=== PATIENT | male | born 1945 | race Caucasian/White ===

== ENCOUNTER 2016-10-26 10:07 | Day surgery (SDC) | payer MEDICARE, MEDICAID ==
[2016-10-26] VITALS (9 sets, daily range): BP systolic 113–167; BP diastolic 53–93; PULSE 59–73; RESP 14–19; O2SAT 95–100
[~2016-10-26] VITALS: Ht 160 cm; Wt 59.2 kg
[~2016-10-26 10:07] MED LIST: ACET325C PO; AMLO10TA3 PO; ASPI-973 PO; ATOR20TA PO; CARV25TA2 PO; CeFAZolin 2 Gm/50 mL D5W IV Premix IV ONE; FOLI0.8C PO; FUR20 PO; GABA-502 PO; LISI40TA PO; Lactated Ringer's 1,000 ML IV ONE; NITR0.4T6 SL; OMEP20CA11 PO; [UNRECOGNIZED DRUG - OTHER]; stool softener
[2016-10-26] MEDS ORDERED: Ondansetron 2 mg/mL 2 mL Inj ONE (10:08)
[2016-10-26] MEDS ORDERED: EPHEDrine/NS 5 mg/mL 5 mL Syringe ONE (10:08)
[2016-10-26] MEDS ORDERED: Propofol 10,000 mCg/mL 20 mL Inj ONE (10:08)
[2016-10-26] MEDS ORDERED: CeFAZolin 2 Gm/50 mL D5W Duplex Bag IV ONE (11:31)
[2016-10-26] MEDS ORDERED: Phenylephrine 10,000 mCg/mL Inj IVPUSH PRN (12:35)
[2016-10-26] MEDS ORDERED: EPHEDrine Sulfate 50 mg/mL Inj IVPUSH PRN (12:35)
[2016-10-26] MEDS ORDERED: Ondansetron 2 mg/mL 2 mL Inj IVPUSH PRN (12:35)
[2016-10-26] MEDS ORDERED: Albuterol-Ipratropium 3 mL Inhalation Solution NEB PRN (12:35)
[2016-10-26] MEDS ORDERED: Lactated Ringer's 500 ML IV PRN (12:35)
[2016-10-26] MEDS ORDERED: MetoCLOpramide 5 mg/mL 2 mL Inj IVPUSH PRN (12:35)
[2016-10-26] MEDS ORDERED: Dexamethasone 4 mg/mL Inj IVPUSH PRN (12:35)
[2016-10-26] MEDS ORDERED: HYDROmorphone 1 mg/mL Inj IVPUSH PRN (12:35)
[2016-10-26] MEDS ORDERED: Lactated Ringer's 1,000 ML IV SCH (12:35)
[2016-10-26] MEDS ORDERED: fentaNYL-PF 50 mCg/mL 2 mL Inj IVPUSH PRN (12:35)
--- NOTE | 2016-10-26 12:35 | PCM.HPANE ---
Patient Data Surgeon Admitting Provider: Attending Provider:Edith Mills MD Primary Care Physician:Carlene Other Provider:Shawn Watts Anesthesia Reason for Visit Bladder Tumor Ht/WT & BMI Height (Feet): 5 Height (Inches): 5.5 Weight (Kilograms): 61.68 Body Mass Index 22.00, 22.00 Allergies Coded Allergies: ether (Verified Allergy, Unknown, 07/30/09) Past Anesthesia History Anesthesia History: Positive for:: Anesthesia Reactions Diabetes History Hx Diabetes?: No MRSA MRSA: No Medications Blood Thinner: Aspirin Hypertension Medication: Yes Home Meds Incl Beta John: Yes Reported Medications [tabavite ] No Conflict Check1 Tab DAILY 10/23/16 [stool softener] No Conflict Lctwv684 Mg PRN For Constipation 10/23/16 Omeprazole 20 Mg Capsule.dr20 Mg PO DAILY Ref 0 10/23/16 Nitroglycerin SL 0.4 Mg Tab.subl0.4 Mg SL PRN For Chest Pain 10/23/16 Lisinopril 40 Mg Ddrpgy34 Mg PO DAILY 30 Days Ref 0 10/23/16 Gabapentin 300 Mg Jitzswk615 Mg PO DAILY Ref 0 10/23/16 Furosemide 20 Mg Tab20 Mg PO DAILY 30 Days Ref 0 10/23/16 Folic Acid 0.8 Mg Capsule0.8 Mg PO DAILY 10/23/16 Carvedilol 25 Mg Sihciv73 Mg PO BID Ref 0 10/23/16 Atorvastatin (Lipitor)20 Mg Weerfr37 Mg PO DAILY Ref 0 10/23/16 Aspirin 81 Mg Vdrhng95 Mg PO DAILY Ref 0 10/23/16 Amlodipine 10 Mg Idnrmh37 Mg PO DAILY Ref 0 10/23/16 Acetaminophen 325 Mg Gvsjufl274 Mg PO PRN For Pain 10/23/16 History History of ENT Problems?: No Hx of Heart Problems?: Yes Cardiovascular History: Positive for:: Cardiac Surgery (4 vessel CABG) Chest Pain Congestive Heart Failure (cardiomyopathy) Hypertension Irregular Heartbeat (left bundle branch block) Denies:: Edema Heart Murmur Pacemaker Thrombophlebitis Hx of Respiratory Problem?: Yes Respiratory History: Positive for:: COPD Chest Surgery (CABG) Dyspnea (chronic) Denies:: Asthma Emphysema Hemoptysis Oxygen Administration Pneumonia Tuberculosis Use of C-PAP Machine Use of Inhalers / NEBS Hx Neurologic Problems?: Yes Neurological History: Positive for:: 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 Hx Musculoskeletal Problems?: No Hx of Psycho/Social Problems?: No Hx Surgeries?: Yes (CABG) Hx Any Other Health Problems?: Yes Other History: Positive for:: Hospitalization Denies:: Cancer Thyroid Disease History Blood Transfusions: Denies:: Blood Transfuse Reaction Blood Transfusions Hx Diabetes: No Hx Alcohol Use: NoHx Substance Use: NoHave You Smoked inLast 12 mo: Yes Stop/Bang S-Snoring: Do You Snore Loudly: No T-Tired: feel tired, fatigued: Yes O-Obsered: Observed not breath: No P-Blood Pressure: treated: Yes B- Body Mass Index > 35 kg/m2: No A- Age over 50: Yes N- Neck Large Circumference: No G- Gender Male: Yes THERESE Total Score: 4 Risk Assessment Category Category 1A: Patient has history of documented sleep apnea, and HAS NOT received any narcotic, sedative or anesthesia administration during this stay. Category 1B: Patient has history of documented sleep apnea, and HAS received any narcotic , sedative or anesthesia administration during this stay Category 2: Patient has SUSPECTED Obstructive Sleep Apnea, and HAS received any narcotic , sedative or anesthesia administration during this stay. Category 3: Patient has SUSPECTED Obstructive Sleep Apnea and HAS NOT received narcotic, sedative or anesthesia administration during this stay. Category 4: Outpatient in Procedural Areas with known sleep apnea or who screen positive for High Risk via the STOP/BANG questionnaire. Exam Exam General Appearance: Alert, Oriented X3, Cooperative, No Acute Distress HEENT/AIRWAY: MP 2 Lungs: Diminished, Wheezes Heart: Exam Unremarkable Plan Impression Patient chart reviewed, patient interviewed and anesthestic plan with risks, benefits, and alternatives discussed, and informed consent obtained. ASA Physical Status: ASA3 Severe Disease (CAD) Anesthetic Plan: GA Bene/Risks/Altern/Consents: Yes HP Complete Prior to Induction: Yes James Burnette MD Oct 26, 2016 07:16
--- NOTE | 2016-10-26 13:35 | PCM.ANEP1 ---
Post Anesthesia Phase 1 PACU Phase 1 Assessment Vital Signs Vital Signs Date Time Temp Pulse Resp B/P Pulse Ox O2 Delivery O2 Flow Rate FiO2 10/26/16 11:06 35.2 67 16 167/63 96 Room Air Anesthetic Administered: GA Level of Alertness: Sleeping, hard to arouse Oxygen Delivery: Simple Mask Lungs: Diminished, Wheezes James Burnette MD Oct 26, 2016 13:35
[2016-10-26] MEDS ORDERED: HYDROcodone-APAP 5-325 mg Tablet PO PRN (13:50)
--- NOTE | 2016-10-26 13:54 | PCM.ANEP2 ---
Post Anesthesia Evaluation ASA/CMS Post Anesthesia VS in Patient's Normal Range?: Yes Resp Stable; Airway Patent?: Yes CV Function & Hydration Stable: Yes Mental Status Recovered?: Yes Pain control Satisfactory?: Yes N/V Control Satisfactory?: Yes James Burnette MD Oct 26, 2016 13:54
--- NOTE | 2016-10-26 22:26 | OP ---
[address] [address] OPERATIVE REPORT PATIENT: ELINOR SALDANA : 1945 MR#: [id number] ADMIT: 10/26/2016 JOB ID: [id number] CORRECTED REPORT: DATE OF SURGERY: 10/26/2016 PREOPERATIVE DIAGNOSIS(ES): Bladder tumor. POSTOPERATIVE DIAGNOSIS(ES): Bladder tumor. PROCEDURE PERFORMED: 1. Rectal exam under anesthesia. 2. Urethral dilation. 3. Cystoscopy and transurethral resection of bladder tumor (3-4 cm). SURGEON: Edith Mills MD. CVIR TECH: None. FINDINGS: 1. Small urethral meatus. 2. Papillary bladder tumor at the right bladder base just superior to the right ureteral orifice. 3. Normal rectal exam without any palpable masses. Prostate is smooth without nodules. ANESTHESIA: General. ESTIMATED BLOOD LOSS: 5 mL. DRAINS: None. SPECIMENS: 1. Bladder tumor. 2. Base of bladder tumor. COMPLICATIONS: None. CONDITION: Stable. INDICATION FOR PROCEDURE: The patient is a 70-year-old gentleman with bladder tumor. He now presents for the aforementioned procedure. DESCRIPTION OF PROCEDURE: After informed consent was obtained, the patient was taken to the operating room. A time-out was performed identifying correct patient, surgical site, and procedure. General anesthesia was smoothly induced. He was given intravenous antibiotics just prior to the start of the procedure. He was placed in the lithotomy position and all pressure points were identified and appropriately padded. A bimanual pelvic exam was performed. The bladder was mobile. The prostate was smooth without nodules. There were no abnormal masses. His genitals were then prepped and draped in the usual sterile fashion. The urethral meatus was quite small. It was dilated in succession up to 30 Burundian. The Gyrus resectoscope was then placed under direct vision. The bladder was systematically surveyed. There was a cellule at the left bladder base. Both ureteral orifices were seen in orthotopic position. There was +3 to 4 trabeculation. There was a papillary tumor 3-4 cm in diameter that encroached upon the right ureteral orifice. A 24-Burundian resecting loop was used to resect the tumor in piecemeal fashion. Cold cup biopsy forceps were then used to take deep specimens of the bladder base. These were passed off separately to pathology. The bladder was irrigated of all of its specimen throughout the procedure. There was excellent hemostasis at the end of the procedure. The patient was then reversed from general anesthesia and taken to PACU in good and stable condition. Corrected by RODOLFO 12/30/16 3:27 pm franco PRADO
--- NOTE | 2016-10-28 12:54 | PATH ---
SURGICAL PATHOLOGY Attending Physician:Edith Mills, CASE STATUS: Signed Out PATIENT NAME: ELINOR SALDANA PID: [id number] : 1945 DATE COLLECTED:10/26/2016 20:45 SPECIMEN: 1: Bladder, Biopsy 2: Bladder, Biopsy CLINICAL HISTORY: BLADDER TUMOR 1. BLADDER TUMOR 2. DEEP BASE OF TUMOR FINAL DIAGNOSIS: 1. 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 No muscularis propria identified. 2. Deep Base of Tumor Biopsy: Urinary bladder tumor including muscularis propria, all negative for malignancy. ICD10 C67.9 NOTE: Case reviewed by Dr. Freddy Masters, who agrees with the diagnosis. GROSS DESCRIPTION: The specimen is received in two formalin filled containers labeled with the patient's name. 1). The specimen is sublabeled "bladder tumor" and consists of multiple portions of light pink to wilde-templeton tissue which aggregate to 3.0 2.0 x 0.5 CM. The specimen is entirely submitted in cassettes 1A, 1B, 1C. 2). The specimen is sublabeled "deep base of bladder" and consists of 2 portions of tissue which aggregate to 0.3 x 0.3 x 0.2 CM. The specimen is entirely submitted in cassette 2A. 10/26/2016 [facility] ICD-9 CODES: CPT CODES: 1: 91831 2: 70169 Electronically Signed Out Bradley Blevins MD [facility] Pathology [facility] [address], [place] [address] Technical component performed at [facility], [facility] [address], [place], [address]
== END 2016-10-26 23:59 | disposition home or self-care (01) ==
LOC: SAS 10:07
PROVIDERS: ATTEND Urology
DX: C67.9 Malignant neoplasm of bladder, unspecified (principal); I34.0 Nonrheumatic mitral (valve) insufficiency; I25.10 Atherosclerotic heart disease of native coronary artery without angina pectoris; I10 Essential (primary) hypertension; Z95.1 Presence of aortocoronary bypass graft; Z87.891 Personal history of nicotine dependence; J44.9 Chronic obstructive pulmonary disease, unspecified
CPT/HCPCS: 52235; 88305; 88307; J0690; J2405; J7120

== ENCOUNTER 2017-01-06 02:31 | Inpatient (IN) | payer MEDICARE, MEDICAID ==
[2017-01-06] VITALS (13 sets, daily range): BP systolic 136–166; BP diastolic 67–84; PULSE 68–104; RESP 14–24; O2SAT 91–98
[~2017-01-06] VITALS: Ht 160 cm; Wt 58.6 kg
[~2017-01-06 02:31] MED LIST changes: -CeFAZolin 2 Gm/50 mL D5W IV Premix IV ONE; -Lactated Ringer's 1,000 ML IV ONE
[2017-01-06] MEDS ORDERED: Alum-Mag Hydrox-Simeth 30 mL Suspension PO PRN (04:20)
[2017-01-06] MEDS ORDERED: Polyethylene Glycol (PEG) 17 Gm Powder PO PRN (04:20)
[2017-01-06] MEDS ORDERED: Ondansetron 2 mg/mL 2 mL Inj IVPUSH PRN (04:20)
[2017-01-06 05:29] LABS: BASOPHILS % (AUTO) 0 % (0-3); EOSINOPHILS % (AUTO) 0 % (0-5); MONOCYTES % (AUTO) 1.9 % (4-12); Mean Corpuscular Hemoglobin 31.3 pg (27.0-35.0); NEUTROPHILS % (AUTO) 91.3 % (40-74); Platelet Count 222 bil/L (150-400)
[2017-01-06] MEDS: Albuterol-Ipratropium 3 mL Inhalation Solution NEB SCH ×5 (06:00→20:48)
[2017-01-06 06:01] LABS: Magnesium 1.8 mg/dL (1.6-2.6)
--- NOTE | 2017-01-06 06:21 | PCM.HPMED ---
Subjective Date of Service Jan 06, 2017 Primary Provider: Admitting Physician: Eduar Cardenas MD Primary Care Physician: Carlene Attending Physician: Eduar Cardenas MD Admit Status: Direct Admit Chief Complaint: Shortness of breath History of Present Illness: Patient is a 71-year-old male with a history of CAD w/p CABG in 2005, prior CVA , hypertension, CHF and ongoing tobacco use who was transferred to [facility] from [facility] with worsening shortness of breath and persistent cough for the past several days. He was found to be hypoxic on arrival to [facility] with oxygen sat of 80% on room air and tachycardic with a heart rate of 108. He was placed on Bipap and received IV lasix, multiple nebulizer treatments as well as IV solu-medrol and his respiratory status improved with O2 sats consistently 91-92%. However, due to lack of bed availability the patient was transferred to [facility] for further evaluation and management of probable COPD exacerbation and possible exacerbation of CHF. On arrival, his vitals were stable and the patient notes significant improvement in his breathing. He states that he has not felt well for the last several days and notes increased dyspnea with exertion, worsening cough and orthopnea. He denies sick contacts, fever, chills, chest pain, palpitations, increased lower extremity edema, dizziness, focal weakness, changes in speech, difficulty swallowing, headache or change in vision. He reports decreased appetite and mild nausea but denies vomiting, diarrhea, constipation or urinary symptoms. At baseline he states that he is only able to walk 10-20ft due to pain in his legs and shortness of breath. He has a 50+ year smoking history and continues to smoke daily but notes that he has been trying to cut back. On arrival to [facility], his was afebrile with a temp of 36.7, hypertensive with BP of 166/81 and satting 97% on 2L nasal cannula with a respiratory rate of 20. Labs at [facility] significant for a wbc 11.6, Hgb/Hct 11.7/34.2, plts 218 , elevated D-dimer 486, proBNP 1620.0, negative troponin x1, BUN 14, creatinine 1.20, serum glucose 133, sodium 124, potassium 4.5, chloride 90, bicab 22. ABG with pH 7.45, pCO2 35.9, pO2 47, bicarb 25.1. SpO2 85% on 9L nasal cannula. EKG reportedly showing NSR with a rate of 90-low 100s and frequent PVCs but no acute ST-T changes; CXR showing chronic interstitial prominence, mild cardiomegaly and findings suspicious for CHF, no focal consolidation. Review of Systems: A comprehensive review of systems was conducted with the patient and found to be negative except as above in the History of Present Illness Allergies Coded Allergies: ether (Verified Allergy, Severe, 01/06/17) "made me violently ill" Home Medications Med rec not available at time of admission, day team to address. Per faxed record from [facility] medications, as below: Amlodipine besylate 10mg po daily Carvedilol 25mg po bid Furosemide 20mg po bid Lisinopril 40mg po daily Atorvastatin 20mg po qhs Aspirin 81mg po daily Omeprazole 20mg po daily Gabapentin 300mg po qhs Folic acid 1mg po daily 0.4mg SL nitroglycerin prn for chest pain PMH CAD w/prior NSTEMI in February of 2016 and 4-vessel bypass in 2005 Hypertension Hyperlipidemia Right frontal hemispheric CVA February 2016 TIA in March 2016 Acute renal failure in February 2016 CHF GERD Surgical History CABG Appendectomy Family History Denies family hx of DVT, PE. Social History Occupation: Retired security system installer. Hx Alcohol Use: No Hx Substance Use: No Hx Tobacco Use: Yes Smoking Status: Current Every Day Smoker (50+ yrs smoking hx) Living Arrangement: Alone Additional Information Lives alone in [place], endorses supportive friends. Limited family. Exam Vital Signs Vital Sign - Last Date Time Temp Pulse Resp B/P Pulse Ox O2 Delivery O2 Flow Rate FiO2 01/06/17 03:57 97 01/06/17 03:48 36.7 20 166/81 97 Nasal Cannula 2.00 Exam General: Chronically ill-appearing, frail, elderly gentleman lying in hospital bed, in no acute distress. Appropriately interactive HEENT: Normocephalic, atraumatic. PERRLA, anicteric sclerae, pale conjunctivae, and no lid lag. Oropharynx free of erythema and cobble stoning with moist mucosa. Neck: +JVD, no bruits, no lymphadenopathy or thyromegaly. Cardiovascular: RRR with no murmurs, rubs, or gallops appreciated Pulmonary: Lung sounds diminished, mild/diffuse wheezing otherwise clear to auscultation bilaterally. Poor respiratory, no use of accessory muscles. Abdomen: Bowel tones present. Soft, nontender, nondistended. No organomegaly or masses appreciated. Extremities: Cool, trace edema at the ankle bilaterally, bilateral muscle wasting of upper/lower extremities. Mild clubbing noted, no cyanosis. Skin: Normal temperature, turgor, and texture; no rash, ulcers, or subcutaneous nodules appreciated. Neurological: CN II-XII grossly intact, no focal neurological deficits, alert and oriented x3. Lab and Diagnostics Labs Labs at [facility] significant for a wbc 11.6, Hgb/Hct 11.7/34.2, plts 218 , elevated D-dimer 486, proBNP 1620.0, negative troponin x1, BUN 14, creatinine 1.20, serum glucose 133, sodium 124, potassium 4.5, chloride 90, bicab 22. ABG with pH 7.45, pCO2 35.9, pO2 47, bicarb 25.1. SpO2 85% on 9L nasal cannula. Please see paper chart for additional details. Laboratory Tests Test 01/06/17 05:15 White Blood Count 4.7th/mm3 (3.8-10.1) Red Blood Count 3.32mil/mm3 (4.40-5.80) Hemoglobin 10.4g/dL (13.8-17.2) Hematocrit 30.2% (41.0-50.0) Mean Corpuscular Volume 91.0fL (81-100) Mean Corpuscular Hemoglobin 31.3pg (27.0-35.0) Mean Corpuscular Hemoglobin Concent 34.4% (32.0-37.0) Red Cell Distribution Width 13.2% (12.3-15.4) Platelet Count 222bil/L (150-400) Neutrophils (%) (Auto) 91.3% (40-74) Lymphocytes (%) (Auto) 6.6% (14-46) Monocytes (%) (Auto) 1.9% (4-12) Eosinophils (%) (Auto) 0% (0-5) Basophils (%) (Auto) 0% (0-3) X-Rays, CTs and MRIs Per ED physician at [facility], CXR showing chronic interstitial prominence , mild cardiomegaly and findings suspicious for CHF, no focal consolidation. 12-lead ECG EKG at [facility] reportedly showing NSR with a rate of 90-low 100s and frequent PVCs but no acute ST-T changes Assessment & Plan 71 y/o male with a history of CAD s/p CABG in 2005, prior CVA, hypertension, CHF and ongoing tobacco use who was transferred to [facility] from [facility] for further evaluation and management of probable COPD exacerbation and possible CHF exacerbation. 1. Acute COPD exacerbation, present on admission. Active. -Pt endorses >50pack-year hx and ongoing daily tobacco as well as marijuana use. Presented with worsening dyspnea, persistent productive cough and found to be hypoxic at [facility]. -Prior to transfer he was placed on Bipap, received IV lasix, IV solu-medrol, multiple duonebs and respiratory distress improved with O2 sats up to 91-92% from a low of 80%. -CXR showing chronic interstitial prominence, mild cardiomegaly and findings suspicious for CHF, no focal consolidation. -Continue supplemental oxygen with goal O2 sats 88-92% -Duonebs q4h, albuterol q2h prn -Oral prednisone 40mg x5 days -Repeat CXR, CBC in the morning 2. Acute hypoxic respiratory failure, present on admission. Active -Secondary to #1. ABG at [facility] with pH 7.45, pCO2 35.9, pO2 47, bicarb 25.1. SpO2 85% on 9L nasal cannula -O2, prednisone and duonebs as above 3. Possible CHF exacerbation, present on admission. Active. -proBNP elevated prior to transfer, 1620.0 -Received IV lasix prior to transfer -Clinically does not appear hypervolemic -Day team to resume meds pending med rec (per [facility] meds: amlodipine besylate 10mg daily, carvedilol 25mg bid, lasix 20mg bid, lisinopril 40mg daily) -Echocardiogram ordered 4. Elevated D-dimer, present on admission. Active. -D-dimer 486, completed at [facility]. Pt with mild tachycardia upon initial presentation. -Low suspicion for PE, CT angio ordered 5. Hyponatremia, unknown chronicity, present on admission. Active. -Sodium prior to transfer 124. -Repeat CMP pending -Cautious IVFs due to #3 6. Chronic hypertension, present on admission. Active. -BP 166/81 on admission, pt remains asymptomatic. -Day team to reconcile medications and resume when appropriate. 7. Chronic hyperlipidemia, present on admission. Presumed stable. -Lipid panel pending -Continue home statin, pending med rec 8. Chronic GERD, present on admission. Presumed stable. -Continue home Omeprazole, pending med rec PRN: Acetaminophen-fever/headache/mild/moderate pain Antiemetics, as needed Bowel regimen, as needed. Disposition: Patient admitted under inpatient status with expected length of stay > 2 midnights for severity of present symptoms, complexities of treatment plan and risk for adverse event. Pain Evaluation: Adequate Pain Control GI Prophylaxis: Not indicated VTE Prophylaxis Indicated: Meets Criteria for Anticoag Therapy VTE Prophylaxis: Sub-Q Enoxaparin Resuscitation Status: CPR: Attempt Resuscitation Attending Statement The patient was seen and examined together with Dr. Timmons on 01/06/2017 and I agree with the history, exam and plan as outlined in the note above. Lakeisha Timmons DO Jan 06, 2017 04:34 Eduar Cardenas MD Jan 06, 2017 06:44
--- NOTE | 2017-01-06 07:46 | NUR ---
Admit Pt admitted to room 2025 around 0400, vitals stable and pt denied any chest pain or SOB. Pt continues on 2L NC w/ sats mid to high 90s. Pt A&O and able to answer admission questions. Med rec done by pt interview and external med Hx as pt was forgetful about some of his med doses. Pt did not bring med list or containers.
[2017-01-06] MEDS: predniSONE 20 mg Tablet PO SCH (08:06)
--- NOTE | 2017-01-06 11:49 | NUR ---
Social [facility]bar[facility] Note: Initial Assessment Data& Assessment: EMR reviewed. SW met with pt at bedside to discuss discharge planning, SW role explained. Zen Mcrae is a 71 year old male admitted on 01/06/2017 for COPD CHF exacerbation. Pt has Medicare and Medicaid insurance coverage. Pt states he does have a PCP he just cant remember the name at this time. Pt stated he is also being followed by an oncologist who removed "some cancer from my bladder" but does not remember their name either. Pt lives in [place] alone in a travel trailer. Pt uses a cane at baseline for ambulation assistance. Pt is able to drive, but his car recently broke down and he takes public transportation. Pt explained he spends $1 for a day ca pass and declined any transportation resources. Pt does not have HH hx. Pt did report he stayed at [facility] in [place] for a month long rehab stay last year. Pt denies [facility] insurance or service connection. Pt declined completing DPOA/Advance Directive paperwork but agreed for SW to leave the paperwork in his room and he would think about it. Pt denies any other needs at this time. SW to continue to follow if needs arise. Plan: Anticipated discharge home via POV when medically ready. Pt states he plans to take the bus home when medically ready and declines any resources, denies any other needs. SW to continue to follow if any needs arise. CONY Villatoro Addendum: 01/06/17 at 1208 by CHERYL ROBERTS Amended: Links added.
--- NOTE | 2017-01-06 12:32 | DRSVH ---
PROCEDURE: CT ANGIO CHEST PULMONARY EMBOLISM ([id number]) INDICATIONS: shortness of breath TECHNIQUE: After the administration of intravenous contrast, 2 mm thick sections acquired from the pulmonary api mellisa to the posterior costophrenic angles. 3-dimensional maximum intensity projection (MIP) coronal a nd sagittal reformats were then acquired through the thorax. For radiation dose reduction, the follo wing was used: automated exposure control, adjustment of mA and/or kV according to patient size. COMPARISON: None. FINDINGS: Image quality: Excellent. Pulmonary arteries: Pulmonary arteries are normal in size, and demonstrate no intraluminal filling d efects to suggest central pulmonary embolism. Lungs and pleura: There are small bilateral low density pleural effusions. There is mild centrilobula r emphysema with an apical predominance. Compressive atelectasis or consolidation is present at the b ilateral dependent lung bases. Mild patchy air space opacities are present within the lingula. Mediastinum: Heart size is mildly enlarged. No pericardial effusion. Atheromatous coronary artery ca lcifications are noted. There is a precarinal lymph node which measures 1.5 cm in diameter and a subc arinal lymph node which measures 1.7 cm in diameter. Thoracic aorta is normal in caliber and enhancem ent. Scattered atheromatous calcifications are present within the aortic arch. Esophagus is normal i n caliber, without hiatal hernia. Bones and chest wall: Patient is status post median sternotomy. No suspicious bony lesions. Ribs and thoracic spine appear intact throughout. Thyroid gland is unremarkable. No axillary or supraclavic ular adenopathy. Abdomen: There is a 10 mm diameter inferior right adrenal gland nodule. Multiple subcentimeter gallst ones are layered in the gallbladder fundus. There is right renal atrophy. Dense atheromatous calcific ations are visualized within the abdominal aorta. Visualized upper abdominal solid organs appear othe rwise normal in the early arterial phase of enhancement. IMPRESSION: 1. No acute pulmonary embolus. 2. Small bilateral low density pleural effusions and dependent basilar consolidation versus compressi ve atelectasis. 3. Mediastinal adenopathy. Differential considerations include reactive, infectious, and neoplastic e tiologies. Consider short interval followup to ensure resolution of this finding and exclude neoplasm . 4. Aortic atherosclerosis. Dictated by: Elena Pittman M.D. on 01/06/2017 at 12:23 Approved by: Elena Pittman M.D. on 01/06/2017 at 12:31
--- NOTE | 2017-01-06 14:14 | DRSVH ---
PROCEDURE: X-RAY CHEST ONE VIEW, PORTABLE ([id number]) INDICATIONS: CHF/COPD exacerbation TECHNIQUE: One view of the chest was acquired. COMPARISON: Merged With [facility], , CHEST 1 VIEW, 01/05/2017, 19:58. FINDINGS: Surgical changes and devices: Sternotomy wires and surgical clips Lungs and pleura: No pleural effusions or pneumothorax. Patchy bibasilar opacities are present.. Mediastinum: Mediastinal contours appear normal. Heart size is normal. Bones and chest wall: No suspicious bony lesions. Overlying soft tissues appear unremarkable. [employer] cecily bilateral rib fractures IMPRESSION: Mild increased patchy retrocardiac opacities since yesterday. Diffuse scattered atelectas is and/or scarring. Dictated by: Mark Crespo M.D. on 01/06/2017 at 14:08 Approved by: Mark Crespo M.D. on 01/06/2017 at 14:09
--- NOTE | 2017-01-06 15:43 | PCM.PNMED ---
Subjective Date of Service Jan 06, 2017 Subjective Mr. Mcrae is a 71-year-old gentleman with a past medical history of coronary artery disease status post CABG in 2005, CVA, hypertension, congestive heart failure, ongoing tobacco abuse who was a direct admit from [facility] secondary to SOB/COPD exacerbation/CHF exacerbation Overnight: Patient admitted to [facility] and approximately 0 400. Vital signs remained stable patient denied any chest pain or shortness of breath throughout the night. He remained on supplemental oxygen via nasal cannula with good saturations. Per telemetry he remained in sinus rhythm in 80s with a first- degree heart block some PVCs. Today: Patient states he feels much better after administration of steroids and DuoNeb treatments. Feels almost back to his baseline. He denies having home O2 use and denies any productive cough leading up to admission. He denies any recent sick contacts or any fevers at home. He states he is in the hospital secondary to his nebulizer not be noted keep up with his increased respiratory demands. He denies any headache, nausea vomiting, chest pain, current shortness of breath while at rest, abdominal pain changes in GI or habits. Exam Vital Signs Vital Sign - Last Date Time Temp Pulse Resp B/P Pulse Ox O2 Delivery O2 Flow Rate FiO2 01/06/17 06:06 97 18 98 Nasal Cannula 2.00 01/06/17 03:48 36.7 166/81 Exam General: Elderly gentleman who is chronically ill in appearance sitting up in bed in no acute distress with oxygen via nasal cannula in place, appropriately interactive. HEENT: Normocephalic, atraumatic. External ears without defect. Pupils equal, round, and reactive to light and accommodation. Anicteric sclerae, moist conjunctivae, and no lid lag. Oropharynx free of erythema and cobble stoning with moist mucosa. Neck: Mild jugular venous distention. No bruits appreciated. Cardiovascular: Regular rate and rhythm with no murmurs appreciated Pulmonary: Decreased air movement with diminished lung sounds. Diffuse wheezing heard best upper anterior lobes. Decreased respiratory effort with no use of accessory muscles Abdomen: Soft nontender to palpation 4 quadrants. Nondistended. Extremities: Lower extremity mild edema seen at the level of the ankles. Global cachexia Skin: Normal temperature, turgor, and texture Neurological: Cranial nerves grossly intact Psychiatric: Normal mood and affect. Alert and oriented to person, place, and time. IVs and Medications Medications Reviewed: Medications were reviewed in detail Lab and Diagnostics Result Diagram: 01/06/1751401/06/17514 X-Rays, CTs and MRIs . X-RAY CHEST ONE VIEW, PORTABLE IMPRESSION: Mild increased patchy retrocardiac opacities since yesterday. Diffuse scattered atelectasis and/or scarring. Dictated by: Mark Crespo M.D. on 01/06/2017 at 14:08 CT ANGIO CHEST PULMONARY EMBOLISM IMPRESSION: 1. No acute pulmonary embolus. 2. Small bilateral low density pleural effusions and dependent basilar consolidation versus compressive atelectasis. 3. Mediastinal adenopathy. Differential considerations include reactive, infectious, and neoplastic etiologies. Consider short interval followup to ensure resolution of this finding and exclude neoplasm. 4. Aortic atherosclerosis. Dictated by: Elena Pittman M.D. on 01/06/2017 at 12:23 12-lead ECG EKG at [facility] reportedly showing NSR with a rate of 90-low 100s and frequent PVCs but no acute ST-T changes Assessment & Plan 71 y/o male with a history of CAD s/p CABG in 2005, prior CVA, hypertension, CHF and ongoing tobacco use who was transferred to [facility] from [facility] for further evaluation and management of probable COPD exacerbation and possible CHF exacerbation. Hospital day 1 1. Acute COPD exacerbation, present on admission. Active. - 50 pack per year smoking history. Patient had cut down to 2-3 cigarettes per day, one day prior to admission endorses smoking 10+ cigarettes - CXR showed increased patchy retrocardiac opacities, diffuse atelectasis/ scarring -Continue supplemental O2 via nasal cannula maintaining sats greater than 88% -Duonebs q4h, albuterol q2h prn -Oral prednisone 40mg x5 days 2. Acute hypoxic respiratory failure, present on admission. Active -Patient reported to have required BiPAP at [facility] -ABG at [facility] with pH 7.45, pCO2 35.9, pO2 47, bicarb 25.1. SpO2 85% on 9L nasal cannula -O2, prednisone and duonebs as above - Abnormal CT finding: Mediastinal adenopathy. Differential considerations include reactive, infectious, and neoplastic etiologies. Consider short interval followup to ensure resolution of this finding and exclude neoplasm. 3. Possible CHF exacerbation, present on admission. Active. -proBNP elevated prior to transfer, 1620.0 -Home meds continued as in # 6 -Echocardiogram pending 4. Elevated D-dimer, present on admission. Active. -D-dimer 486, completed at [facility]. Pt with mild tachycardia upon initial presentation. -CT angio showed no evidence of PE 5. Hyponatremia, unknown chronicity, present on admission. Active. -Sodium prior to transfer 124. -Repeat CMP pending -Cautious IVFs due to #3 6. Chronic hypertension, present on admission. Active. -BP 166/81 on admission, pt remains asymptomatic. - amlodipine besylate 10mg daily, carvedilol 25mg bid, lasix 20mg bid, lisinopril 40mg daily 7. Chronic hyperlipidemia, present on admission. Presumed stable -Lipid panel pending -Continue home statin 8. Chronic GERD, present on admission. Presumed stable. -Continue home Omeprazole PRN: Acetaminophen-fever/headache/mild/moderate pain Antiemetics, as needed Bowel regimen, as needed. Patient states primary care provider is Dr. Rashmi Baker Disposition: Patient admitted under inpatient status with expected length of stay > 2 midnights for severity of present symptoms, complexities of treatment plan and risk for adverse event. GI Prophylaxis: Not indicated VTE Prophylaxis: Sub-Q Enoxaparin Resuscitation Status: CPR: Attempt Resuscitation Attending Statement The patient was seen and examined together with Dr. Odonnell on 01/06/2017 and I agree with the history, exam and plan as outlined in the note above. . WOODY ODONNELL DO Jan 06, 2017 06:59 Ted Bang MD Jan 08, 2017 17:34
[2017-01-06] MEDS: Pantoprazole 40 mg ER24 Tablet PO SCH (17:44)
--- NOTE | 2017-01-06 19:30 | NUR ---
Tests Report given to CT. Prior to going to CT an IV was needed in his anticubital area which was placed by MICHELE Scott from [facility]. He was taken by transporter via wheelchair at 1140 from [facility] [address] scan completed in the CT department. He returned to [facility] 2025 at 1158 and was settled back into the room and placed back on 2L of O2 from the wall O2 supply. He also received a chest x-ray and echocardiogram today. A urine sample was sent to the lab for testing. Spoke with Dr. Odonnell several times throughout the day updating him on the fact that the tests were completed and asked him if he wanted normal saline ordered as he said he would consider it due to the low sodium lab result of 128, but only once the tests were completed and he had reviewed the results. No normal saline was ordered. 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 Care continues.
[2017-01-06] MEDS ORDERED: Lisinopril 40 Tablet PO SCH (21:00)
[2017-01-07] VITALS (9 sets, daily range): BP systolic 135–155; BP diastolic 66–70; PULSE 61–81; RESP 18–20; O2SAT 93–100
[2017-01-07] MEDS: Albuterol-Ipratropium 3 mL Inhalation Solution NEB SCH ×4 (00:33→12:27)
[2017-01-07 03:56] LABS: BASOPHILS % (AUTO) 0 % (0-3); EOSINOPHILS % (AUTO) 0 % (0-5); MONOCYTES % (AUTO) 9.8 % (4-12); Mean Corpuscular Hemoglobin 31.8 pg (27.0-35.0); Mean Corpuscular Volume 92.2 fL (81-100); NEUTROPHILS % (AUTO) 85.6 % (40-74); Platelet Count 244 bil/L (150-400)
--- NOTE | 2017-01-07 06:27 | NUR ---
SOB Pt c/o SOB at start of shift and O2 was at 4L NC, pt encouraged to deep breathe and after breathing treatment was done pt was more at ease and not working so hard to breathe. Later in shift sats were high 90s on 4L and pt was titrated back down to 2L. Pt encouraged to cough and deep breathe as well as to call staff when needing to stand to urinate for safety. Pt was compliant with this. Pt monitored on FRAME HAND, denied pain all shift.
[2017-01-07] MEDS: Pantoprazole 40 mg ER24 Tablet PO SCH (08:04)
[2017-01-07] MEDS: predniSONE 20 mg Tablet PO SCH (08:04)
--- NOTE | 2017-01-07 08:56 | DRSVH ---
PROCEDURE: X-RAY CHEST ONE VIEW, PORTABLE ([id number]) INDICATIONS: pneumonia TECHNIQUE: One view of the chest was acquired. COMPARISON: [facility], CR, XR CHEST 1VW (PORTABLE), 01/06/2017, 12:34. FINDINGS: Surgical changes and devices: Median sternotomy. Lungs and pleura: No pleural effusions or pneumothorax. No change in moderate bibasilar airspace opa cities. Mediastinum: Mediastinal contours appear normal. Heart size is normal. Bones and chest wall: No suspicious bony lesions. Overlying soft tissues appear unremarkable. IMPRESSION: No change in bilateral pneumonia. Dictated by: Aixa Gooden M.D. on 01/07/2017 at 8:55 Approved by: Aixa Gooden M.D. on 01/07/2017 at 8:55
--- NOTE | 2017-01-07 14:41 | DRSVH ---
[facility] [address] [place] [address] Echocardiogram Report Name: ELINOR SALDANA Study Date: 01/06/2017 Height: 63 in Hospital Exam Location: [facility] Weight: 129 lb Gender: Male BSA: 1.6 m2 : 1945 Age: 71 yrs BP: 166/81 mmHg Reason For Study: Congestive Heart Failure Ordering Physician: HOSPITALIST [facility] Performed By: Moreno Barroso Referring Physician: ALYSSA MILLS Interpretation Summary 1) Normal left ventricular thickness and size with mild to moderately reduced systolic function (EF 40-45%). 2) Akinesis of the basal to mid inferior walll. Hypokinesis of the inferolateral and inferoseptal wall. 3) Left atrium is severely dilated. 4) No significant valvular abnormalities. 5) Compared to the Echo done 02/29/2016, LVEF has improved from 30-35% to 40- 45% on today's study. Procedure: A two-dimensional transthoracic echocardiogram with color flow and Doppler was performed. The study quality was technically adequate. Comparison is made with the echocardiogram of 02/29/16. Left Ventricle: The left ventricle is normal in size. There is normal left ventricular wall thickness. The ejection fraction is estimated to be 40-45%. Left ventricular systolic function is mild to moderately reduced. Akinesis of the basal to mid inferior walll. Hypokinesis of the inferolateral and inferoseptal wall. Assessment of diastolic parameters suggests a pseudonormalization pattern, consistent with elevated filling pressures. Right Ventricle: The right ventricle is borderline dilated. Right ventricular systolic function is moderately reduced. Atria: The left atrium is severely dilated. The right atrium is mildly dilated. The interatrial septum is intact with no evidence for an atrial septal defect. Mitral Valve: The mitral valve leaflets are mildly calcified. There is mild mitral regurgitation. Aortic Valve: The aortic valve is trileaflet. There is mild aortic valve sclerosis. There is no aortic valve stenosis. No aortic regurgitation is present. Tricuspid Valve: The tricuspid valve is normal. There is trace tricuspid regurgitation. Pulmonic Valve: The pulmonic valve is not well seen, but is grossly normal. There is mild to moderate pulmonic regurgitation. Great Vessels: The aortic root is normal size. The dimensions of the ascending aorta are normal. The pulmonary artery is normal size. The IVC is of normal diameter and collapses less than 50% with a sniff. This suggests a right atrial pressure of 8 mm Hg. Pericardium/ Pleura There is no pericardial effusion. There is no pleural effusion. MMode/2D Measurements & Calculations LVIDd: 5.4 cm RA long axis LVOT diam: 1.9 cm LVIDs: 4.5 cm LA A2 area: 22.9 cm AoV Opening FS: 17.1 % LA A4 area: 27.3 cm RA area EPSS: 1.2 cm LA length (vol) Ao root diam IVSd: 0.97 cm : 17.9 cm LVPWd: 0.89 cm LA vol: 89.9 ml RA vol asc Aorta Diam LA vol index : 60.5 ml RA Ao Arch Diam (Prox : 37.7 mm2 Trans): 2.5 cm IVC diam: 2.[address] diameter/BSA LV sys. diameter/BSA RVD1 (basal) RVD2 (mid): 3.7 cm (cm/m^2): 3.4 (cm/m^2): 2.8 TAPSE: 1.4 cm Doppler Measurements & Calculations Ao V2 max MV E max aj MV E/A: 1.7 TR max aj : 134.5 cm/sec : 121.1 cm/sec Med Peak E' Aj : 265.1 cm/sec Ao max P.3 mmHg MV A max aj TR max PG Ao mean P.8 mmHg : 70.8 cm/sec E/E' med: 29.5 : 28.2 mmHg LVOT Max Aj Lat Peak E' Aj PA V2 max : 94.5 cm/sec : 93.9 cm/sec E/E' lat: 16.9 PA mean PG CELENA(I,D): 2.2 cm E/e' average : 2.0 mmHg sev ratio: 0.81 MV dec time: 0.15 sec Ao V2 mean LV V1 max PG PA V2 mean : 91.0 cm/sec : 67.9 cm/sec Ao V2 VTI: 25.9 cmLV V1 VTI PA pr(Accel) : 21.1 cm : 37.7 mmHg CELENA(V,D): 1.9 cm2 CELENA indexed to BSA (cm^2/m^2): 1.4 Reading Physician:02:40 PM
[2017-01-07] MEDS ORDERED: IPRA3AMP NEB (14:44)
[2017-01-07] MEDS ORDERED: ZIT250 PO (14:44)
--- NOTE | 2017-01-07 14:55 | PCM.DIMED ---
WOODY ODONNELL DO 01/07/17 1446: Discharge Instructions Date of Service Jan 07, 2017 Dates of Hospitalization Jan 06, 2017 at 03:44 Discharge Diagnosis Discharge Diagnosis 1. Acute COPD exacerbation 2. Acute hypoxic respiratory failure 3. Possible CHF exacerbation 4. Elevated D-dimer 5. Hyponatremia 6. Chronic hypertension 7. Chronic hyperlipidemia 8. Chronic GERD Medication Instructions I am continuing all of your regularly prescribed medications from her primary care provider. In addition I am giving him a prescription for DuoNeb's (ipratropium/albuterol sulfate). You may use this medication as needed 3 mL with the nebulizer every 4 hours. I am also giving you an additional 3 days of the antibiotic azithromycin. You are to take 250 mg of this antibiotic by mouth every day for the next 3 days starting tomorrow for 01/08/2017 Patient will be sent home with O2 per respiratory therapy recommendations for home oxygen. I am also giving you a medication called prednisone which you have received while in the hospital. You have had 2 days of 40 mg each day. I am giving her a prescription for 610 mg tablets to go home with. Starting tomorrow for 2016 please take 2 of these tablets for a total of 20 mg by mouth. The following day for 01/09/2017 please take an additional 2 tablets for a total 20 mg by mouth. On 01/10/2017 please take 1 tablet 10 mg total by mouth. Finally on 01/11/2017 please take one 10 mg tablet by mouth dose completing your prednisone steroid taper course. Diet Heart Healthy, Renal Diet Activity Limited until seen by PCP Call your provider Fever or Chills, Shortness of breath, Bleeding, Chest pain, Vomitting, Excessive diarrhea, Weakness (unilateral) Patient Instructions Please follow-up with the primary care provider within the next 2 weeks regarding this hospital admission. He also need an additional chest x-ray to ensure resolution of any possible pneumonia. Follow-up Provider: Tiera Wright DO Follow-up with PCP in: 2 weeks Ted Bang MD 01/08/17 0615: Discharge Instructions Attending's Statement The patient was seen and examined together with Dr. Odonnell on 01/07/2017 and I agree with the history, exam and plan as outlined in the note above. . WOODY ODONNELL DO Jan 07, 2017 14:46 Ted Bang MD Jan 08, 2017 17:35
--- NOTE | 2017-01-07 15:11 | NUR ---
Respiratory Home O2 Evaluation At rest: Sat on RA: 87% Sat on 2 LNC 93%
--- NOTE | 2017-01-07 17:00 | NUR ---
Social Work: Discharge D: Pt discussed in am rounds. Pt is medically stable for discharge home. RT is arranging for home 02. Pt lives in [place] and was a transfer from [facility]. Pt has been SBA during admission and will be discharging home with no SW needs. Pt uses a cane for ambulation which is at bedside. Pt states that he does not have transportation home. He has been attempting to locate a ride with no success. Pt has [employer] however per Medicaid transportation with [facility], pt does not have a transportation benefit. The pt states that he usually rides public transportation and that he is planning to take the bus home if he cannot find a ride. The pt has money to pay for a bus ticket and does not require a [facility] pass from [facility]. EMR reviewed; no further discharge needs identified at this time A: Pt who is I at baseline. P: Pt to discharge home via public transportation and home 02. CONY Dumont
[2017-01-07] MEDS ORDERED: PRED-508 PO (17:01)
[2017-01-07] MEDS ORDERED: PRE10 PO (17:03)
--- NOTE | 2017-01-07 17:15 | NUR ---
Discharge pt ordered for discharge home with self. pt alert and oriented and coordinated own transportation home via public bus system. discharge instructions and medications reviewed with patient. pt escorted via wheelchair with home O2 tank to desired bus stop at about 1714.
--- NOTE | 2017-01-07 19:09 | PCM.DIMED ---
WOODY ODONNELL DO 01/07/17 1909: Discharge Instructions Date of Service Jan 07, 2017 Dates of Hospitalization Jan 06, 2017 at 03:44 Discharge Diagnosis Discharge Diagnosis 1. Acute COPD exacerbation 2. Acute hypoxic respiratory failure 3. Possible CHF exacerbation 4. Elevated D-dimer 5. Hyponatremia 6. Chronic hypertension 7. Chronic hyperlipidemia 8. Chronic GERD Medication Instructions I am continuing all of your regularly prescribed medications from her primary care provider. In addition I am giving him a prescription for DuoNeb's (ipratropium/albuterol sulfate). You may use this medication as needed 3 mL with the nebulizer every 4 hours. I am also giving you an additional 3 days of the antibiotic azithromycin. You are to take 250 mg of this antibiotic by mouth every day for the next 3 days starting tomorrow for 01/08/2017 Patient will be sent home with O2 per respiratory therapy recommendations for home oxygen. I am also giving you a medication called prednisone which you have received while in the hospital. You have had 2 days of 40 mg each day. I am giving her a prescription for 610 mg tablets to go home with. Starting tomorrow for 2016 please take 2 of these tablets for a total of 20 mg by mouth. The following day for 01/09/2017 please take an additional 2 tablets for a total 20 mg by mouth. On 01/10/2017 please take 1 tablet 10 mg total by mouth. Finally on 01/11/2017 please take one 10 mg tablet by mouth dose completing your prednisone steroid taper course. Diet Heart Healthy, Renal Diet Activity Limited until seen by PCP Call your provider Fever or Chills, Shortness of breath, Bleeding, Chest pain, Vomitting, Excessive diarrhea, Weakness (unilateral) Patient Instructions Please follow-up with the primary care provider within the next 2 weeks regarding this hospital admission. He also need an additional chest x-ray to ensure resolution of any possible pneumonia. Follow-up Provider: Tiera Wright DO Follow-up with PCP in: 2 weeks Ted Bang MD 01/08/17 9504: Discharge Instructions Attending's Statement The patient was seen and examined together with Dr. Odonnell on 01/07/2017 and I agree with the history, exam and plan as outlined in the note above. . WOODY ODONNELL DO Jan 07, 2017 19:09 Ted Bang MD Jan 08, 2017 17:34
--- NOTE | 2017-01-07 19:15 | PCM.DC.MED ---
Discharge Summary Date of Service Jan 07, 2017 Dates of Hospitalization Date of Hospital Admission Jan 06, 2017 at 03:44 Date of Discharge: Jan 07, 2017 Providers: Admitting Physician: Eduar Cardenas MD Primary Care Physician: Noprobin Attending Physician: Eduar Cardenas MD Diagnosis at Time of Discharge Diagnosis at Time of Discharge 1. Acute COPD exacerbation 2. Acute hypoxic respiratory failure 3. Possible CHF exacerbation 4. Elevated D-dimer 5. Hyponatremia 6. Chronic hypertension 7. Chronic hyperlipidemia 8. Chronic GERD Consultations Dr. Lazaro Mccann, cardiology Procedures XRay, CTs & MRIs . X-RAY CHEST ONE VIEW, PORTABLE IMPRESSION: Mild increased patchy retrocardiac opacities since yesterday. Diffuse scattered atelectasis and/or scarring. Dictated by: Mark Crespo M.D. on 01/06/2017 at 14:08 CT ANGIO CHEST PULMONARY EMBOLISM IMPRESSION: 1. No acute pulmonary embolus. 2. Small bilateral low density pleural effusions and dependent basilar consolidation versus compressive atelectasis. 3. Mediastinal adenopathy. Differential considerations include reactive, infectious, and neoplastic etiologies. Consider short interval followup to ensure resolution of this finding and exclude neoplasm. 4. Aortic atherosclerosis. Dictated by: Elena Pittman M.D. on 01/06/2017 at 12:23 ECG 12 Lead EKG at [facility] reportedly showing NSR with a rate of 90-low 100s and frequent PVCs but no acute ST-T changes Cardiac Echo Impression Echocardiogram Report Interpretation Summary 1) Normal left ventricular thickness and size with mild to moderately reduced systolic function (EF 40-45%). 2) Akinesis of the basal to mid inferior walll. Hypokinesis of the inferolateral and inferoseptal wall. 3) Left atrium is severely dilated. 4) No significant valvular abnormalities. 5) Compared to the Echo done 02/29/2016, LVEF has improved from 30-35% to 40- 45% on today's study. Brief History History and physical per Dr.Beuning DICK 01/06/2017 "Patient is a 71-year-old male with a history of CAD w/p CABG in 2005, prior CVA , hypertension, CHF and ongoing tobacco use who was transferred to [facility] from [facility] with worsening shortness of breath and persistent cough for the past several days. He was found to be hypoxic on arrival to [facility] with oxygen sat of 80% on room air and tachycardic with a heart rate of 108. He was placed on Bipap and received IV lasix, multiple nebulizer treatments as well as IV solu-medrol and his respiratory status improved with O2 sats consistently 91-92%. However, due to lack of bed availability the patient was transferred to [facility] for further evaluation and management of probable COPD exacerbation and possible exacerbation of CHF. On arrival, his vitals were stable and the patient notes significant improvement in his breathing. He states that he has not felt well for the last several days and notes increased dyspnea with exertion, worsening cough and orthopnea. He denies sick contacts, fever, chills, chest pain, palpitations, increased lower extremity edema, dizziness, focal weakness, changes in speech, difficulty swallowing, headache or change in vision. He reports decreased appetite and mild nausea but denies vomiting, diarrhea, constipation or urinary symptoms. At baseline he states that he is only able to walk 10-20ft due to pain in his legs and shortness of breath. He has a 50+ year smoking history and continues to smoke daily but notes that he has been trying to cut back. On arrival to [facility], his was afebrile with a temp of 36.7, hypertensive with BP of 166/81 and satting 97% on 2L nasal cannula with a respiratory rate of 20. Labs at [facility] significant for a wbc 11.6, Hgb/Hct 11.7/34.2, plts 218 , elevated D-dimer 486, proBNP 1620.0, negative troponin x1, BUN 14, creatinine 1.20, serum glucose 133, sodium 124, potassium 4.5, chloride 90, bicab 22. ABG with pH 7.45, pCO2 35.9, pO2 47, bicarb 25.1. SpO2 85% on 9L nasal cannula. EKG reportedly showing NSR with a rate of 90-low 100s and frequent PVCs but no acute ST-T changes; CXR showing chronic interstitial prominence, mild cardiomegaly and findings suspicious for CHF, no focal consolidation. " Hospital Course 71 y/o male with a history of CAD s/p CABG in 2005, prior CVA, hypertension, CHF and ongoing tobacco use who was transferred to [facility] from [facility] for further evaluation and management of probable COPD exacerbation and possible CHF exacerbation. Hospital day 1 1. Acute COPD exacerbation, present on admission. Improved - 50 pack per year smoking history. Patient had cut down to 2-3 cigarettes per day, one day prior to admission endorses smoking 10+ cigarettes - CXR showed increased patchy retrocardiac opacities, diffuse atelectasis/ scarring -Continue supplemental O2 via nasal cannula maintaining sats greater than 88% -Duonebs q4h, albuterol q2h prn -Oral prednisone 40mg x5 days - Azithromycin - Discharge with prednisone taper 2. Acute hypoxic respiratory failure, present on admission. Improved -Patient reported to have required BiPAP at [facility] -ABG at [facility] with pH 7.45, pCO2 35.9, pO2 47, bicarb 25.1. SpO2 85% on 9L nasal cannula -O2, prednisone and duonebs as above - Abnormal CT finding: Mediastinal adenopathy. Differential considerations include reactive, infectious, and neoplastic etiologies. Consider short interval followup to ensure resolution of this finding and exclude neoplasm. - DC summary will be sent to patient's primary care provider, I called and left a message with 's office regarding this finding as well 3. Possible CHF exacerbation, present on admission. Improved -proBNP elevated prior to transfer, 1620.0 -Home meds continued as in # 6 -Echocardiogram improved from previous study 4. Elevated D-dimer, present on admission. Active. -D-dimer 486, completed at [facility]. Pt with mild tachycardia upon initial presentation. -CT angio showed no evidence of PE 5. Hyponatremia, unknown chronicity, present on admission. Active. -Sodium prior to transfer 124. -Repeat CMP pending -Cautious IVFs due to #3 6. Chronic hypertension, present on admission. Active. -BP 166/81 on admission, pt remains asymptomatic. - amlodipine besylate 10mg daily, carvedilol 25mg bid, lasix 20mg bid, lisinopril 40mg daily 7. Chronic hyperlipidemia, present on admission. Presumed stable -Continue home statin 8. Chronic GERD, present on admission. Presumed stable. -Continue home Omeprazole Exam Vital Signs (Last) Date Time Temp Pulse Resp B/P Pulse Ox O2 Delivery O2 Flow Rate FiO2 01/07/17 12:28 64 18 96 Nasal Cannula 2.00 01/07/17 11:51 37.0 135/70 Exam General: Elderly gentleman who is chronically ill in appearance sitting up in bed bedside chair in no acute distress with oxygen via nasal cannula in place, appropriately interactive. HEENT: Normocephalic, atraumatic. External ears without defect. Pupils equal, round, and reactive to light and accommodation. Anicteric sclerae, moist conjunctivae, and no lid lag. Oropharynx free of erythema and cobble stoning with moist mucosa. Neck: No JVD. No bruits appreciated. Supple with full range of motion Cardiovascular: Regular rate and rhythm with no murmurs appreciated Pulmonary: Decreased air movement with diminished lung sounds. Diffuse wheezing heard best upper anterior lobes. Decreased respiratory effort with no use of accessory muscles Abdomen: Soft nontender to palpation 4 quadrants. Nondistended. Extremities: Lower extremity mild edema seen at the level of the ankles. Skin: Normal temperature, turgor, and texture Neurological: Cranial nerves grossly intact Psychiatric: Normal mood and affect. Alert and oriented to person, place, and time. Test 01/06/17 05:15 01/06/17 15:10 01/06/17 15:11 01/07/17 03:35 Hemoglobin A1c 5.7% (4.8-5.6) Triglycerides Level 48mg/dL (0-149) Cholesterol Level 146mg/dL (100-199) LDL Cholesterol, Calculated 28.400mg/dL (0-99) VLDL Cholesterol 9.600mg/dL HDL Cholesterol 108mg/dL (>39) Cholesterol/HDL Ratio 1.35 (0.0-4.4) Troponin T < 0.010ug/L (0.0-0.011) Urine Legionella pneumophilia Ag Negative (Negative) White Blood Count 11.4th/mm3 (3.8-10.1) Red Blood Count 3.21mil/mm3 (4.40-5.80) Hemoglobin 10.2g/dL (13.8-17.2) Hematocrit 29.6% (41.0-50.0) Mean Corpuscular Volume 92.2fL (81-100) Mean Corpuscular Hemoglobin 31.8pg (27.0-35.0) Mean Corpuscular Hemoglobin Concent 34.5% (32.0-37.0) Red Cell Distribution Width 13.3% (12.3-15.4) Platelet Count 244bil/L (150-400) Neutrophils (%) (Auto) 85.6% (40-74) Lymphocytes (%) (Auto) 4.3% (14-46) Monocytes (%) (Auto) 9.8% (4-12) Eosinophils (%) (Auto) 0% (0-5) Basophils (%) (Auto) 0% (0-3) Sodium Level 130mEq/L (134-144) Potassium Level 4.4mEq/L (3.5-5.2) Chloride Level 91mEq/L (97-108) Carbon Dioxide Level 24mmol/L (18-29) Blood Urea Nitrogen 25mg/dL (8-27) Creatinine 1.53mg/dL (0.76-1.27) Estimat Glomerular Filtration Rate 48mL/min (>59) Glucose Level 155mg/dL (60-99) Calcium Level 9.2mg/dL (8.5-10.1) Magnesium Level 2.0mg/dL (1.6-2.6) Total Bilirubin 0.4mg/dL (0.0-1.2) Aspartate Amino Transf (AST/SGOT) 18U/L (0-50) Alanine Aminotransferase (ALT/SGPT) 11U/L (0-44) Alkaline Phosphatase 73U/L (25-160) Total Protein 6.0g/dL (6.4-8.4) Albumin 3.8g/dL (3.4-5.0) Procalcitonin 0.21ng/mL (0.00-0.08) Discharge Medications Discharge Medications ([tabavite ]) 1 TAB DAILY (Reported) Amlodipine (Amlodipine) 10 Mg Tablet 10 MG PO DAILY (Reported) Aspirin (Aspirin) 81 Mg Tablet 81 MG PO DAILY (Reported) Atorvastatin (Lipitor) 20 Mg Tablet 20 MG PO HS (Reported) Azithromycin (Zithromax) 250 Mg Tablet 250 MG PO DAILY Prescribed by: WOODY ODONNELL DO Carvedilol (Carvedilol) 25 Mg Tablet 25 MG PO BID (Reported) Folic Acid (Folic Acid) 0.8 Mg Capsule 0.8 MG PO DAILY (Reported) Furosemide (Furosemide) 20 Mg Tab 20 MG PO DAILY (Reported) Gabapentin (Gabapentin) 300 Mg Capsule 300 MG PO HS (Reported) Ipratropium/Albuterol Sulfate (Iprat-Albut 0.5-3(2.5) mg/3 mL Inhalant Soln) 3 Ml Ampul.neb 3 ML NEB Q4 Prescribed by: WOODY ODONNELL DO Lisinopril (Lisinopril) 40 Mg Tablet 40 MG PO HS (Reported) Omeprazole (Omeprazole) 20 Mg Capsule.dr 20 MG PO DAILY (Reported) Prednisone (PredniSONE) 10 Mg Tablet 10 MG PO DAILY Prescribed by: WOODY ODONNELL DO As needed ([stool softener]) 100 MG PRN For Constipation (Reported) Acetaminophen (Acetaminophen) 325 Mg Capsule 650 MG PO BID PRN PRN For Pain ( Reported) Nitroglycerin SL (Nitroglycerin SL) 0.4 Mg Tab.subl 0.4 MG SL PRN For Chest Pain (Reported) Additional med instructions I am continuing all of your regularly prescribed medications from her primary care provider. In addition I am giving him a prescription for DuoNeb's (ipratropium/albuterol sulfate). You may use this medication as needed 3 mL with the nebulizer every 4 hours. I am also giving you an additional 3 days of the antibiotic azithromycin. You are to take 250 mg of this antibiotic by mouth every day for the next 3 days starting tomorrow for 01/08/2017 Patient will be sent home with O2 per respiratory therapy recommendations for home oxygen. I am also giving you a medication called prednisone which you have received while in the hospital. You have had 2 days of 40 mg each day. I am giving her a prescription for 610 mg tablets to go home with. Starting tomorrow for 2016 please take 2 of these tablets for a total of 20 mg by mouth. The following day for 01/09/2017 please take an additional 2 tablets for a total 20 mg by mouth. On 01/10/2017 please take 1 tablet 10 mg total by mouth. Finally on 01/11/2017 please take one 10 mg tablet by mouth dose completing your prednisone steroid taper course. Followup Plan Disposition: Patient discharged to home in stable condition with supplemental O2 in place. Follow-up plan Patient encouraged to follow up primary care provider within 2 weeks regarding this hospital visit. Discharge Diet: Heart Healthy, Renal Diet Discharge Activity: Limited until seen by PCP Patient Instructions Please follow-up with the primary care provider within the next 2 weeks regarding this hospital admission. He also need an additional chest x-ray to ensure resolution of any possible pneumonia. Follow-up Provider: Tiera Wright DO Follow-up with PCP in: 2 weeks Time spent Greater than 30 minutes was spent in preparation of discharge with greater than 50% of that time dedicated to patient counseling and coordination of care. . Attending Statement The patient was seen and examined together with Dr. Odonnell on 01/07/2017 and I agree with the history, exam and plan as outlined in the note above. . copies to: Tiera Wright GILES A DO Jan 07, 2017 19:15 Ted Bang MD Jan 08, 2017 17:43
== END 2017-01-07 17:18 | disposition home or self-care (01) | DRG 189 ==
LOC: PCC 03:44
PROVIDERS: ADMIT Family Medicine; ATTEND Family Medicine
DX: J96.01 Acute respiratory failure with hypoxia (principal); J44.1 Chronic obstructive pulmonary disease with (acute) exacerbation; E87.1 Hypo-osmolality and hyponatremia; I25.10 Atherosclerotic heart disease of native coronary artery without angina pectoris; F17.210 Nicotine dependence, cigarettes, uncomplicated; I10 Essential (primary) hypertension; F12.90 Cannabis use, unspecified, uncomplicated; E78.5 Hyperlipidemia, unspecified; K21.9 Gastro-esophageal reflux disease without esophagitis; I25.2 Old myocardial infarction; Z79.82 Long term (current) use of aspirin; Z98.61 Coronary angioplasty status; Z86.73 Personal history of transient ischemic attack (TIA), and cerebral infarction without residual deficits